=== PATIENT | female | born 1960 | race Caucasian/White ===

== ENCOUNTER 2018-01-09 08:40 | Observation (INO) | payer OTHER ==
[2018-01-09] MEDS: ASPIRIN 325 MG TABLET PO (09:00)
[2018-01-09] MEDS: IPRATRPIUM/ALBUTEROL 0.5/2.5MG 3 ML NEBU. NEB ×3 (09:17→19:45)
[2018-01-09 09:44] LABS: ADD MAN DIFF? NO
[2018-01-09 09:49] LABS: BASO % 1 % (0-3); EOS # 0.1 x10^3/uL (0.0-0.7); EOS % 2 % (0-3); HEMATOCRIT 42.4 % (36.0-47.0); HEMOGLOBIN 14.7 g/dL (12.0-15.5); LYMPH # 0.8 x10^3/uL (1.0-4.8); LYMPH % 17 % (24-48); MEAN CORPUSCULAR HEMOGLOBIN 31 pg (25-35); MEAN CORPUSCULAR HGB CONC 35 g/dL (31-37); MEAN CORPUSCULAR VOLUME 88 fL (79-100); MONO # 0.4 x10^3/uL (0.0-1.1); MONO % 7 % (0-9); NEUT # 3.5 x10^3uL (1.8-7.7); NEUT % 74 % (31-73); PLATELET COUNT 253 x10^3/uL (140-400); RED CELL DISTRIBUTION WIDTH 13.3 % (11.5-14.5); WHITE BLOOD COUNT 4.8 x10^3/uL (4.0-11.0)
[2018-01-09 09:58] LABS: ANION GAP 7 (6-14); BLOOD UREA NITROGEN 12 mg/dL (7-20); BUN/CREATININE RATIO 11 (6-20); CALCIUM 9.4 mg/dL (8.5-10.1); CARBON DIOXIDE 30 mmol/L (21-32); CHLORIDE 96 mmol/L (98-107); CREATININE 1.1 mg/dL (0.6-1.0); GFR 50.8; GLUCOSE 105 mg/dL (70-99); POTASSIUM 4.5 mmol/L (3.5-5.1); SODIUM 133 mmol/L (136-145)
[2018-01-09 10:01] LABS: PROTHROMBIN TIME PATIENT 12.4 SEC (11.7-14.0)
[2018-01-09] MEDS: IV NORMAL SALINE 1000ML BAG 1,000 ML IV (10:02)
[2018-01-09 10:03] LABS: ALBUMIN 4.1 g/dL (3.4-5.0); ALBUMIN/GLOBULIN RATIO 1.1 (1.0-1.7); ALK PHOS 65 U/L (46-116); ALT (SGPT) 25 U/L (14-59); AST (SGOT) 21 U/L (15-37); LIPASE 165 U/L (73-393); MAGNESIUM 2.2 mg/dL (1.8-2.4); TOTAL BILIRUBIN 0.3 mg/dL (0.2-1.0); TOTAL PROTEIN 7.7 g/dL (6.4-8.2)
[2018-01-09] MEDS: DICYCLOMINE 20 MG/2 ML AMPUL. IM (10:03)
[2018-01-09] MEDS: MORPHINE SULFATE 4 MG/ML DISP.SYRIN. IV/SQ (10:04)
[2018-01-09 10:08] LABS: TROPONINI < 0.017 ng/mL (0.000-0.055)
[2018-01-09 10:10] LABS: THYROID STIM HORMONE (TSH) 2.221 uIU/mL (0.358-3.74)
[2018-01-09 10:11] LABS: NT-PRO BNP 228 pg/mL (0-124)
[2018-01-09 10:11] LABS: CKMB MASS 0.9 ng/mL (0.0-3.6); CREATINE KINASE 57 U/L (26-192)
[2018-01-09 10:33] LABS: BILIRUBIN,URINE NEGATIVE (NEG); CLARITY,URINE CLEAR; COLOR,URINE OTHER; GLUCOSE,URINE NEGATIVE (NEG); NITRITE,URINE NEGATIVE (NEG); PH,URINE 7.5; PROTEIN,URINE NEGATIVE (NEG-TRACE); UROBILINOGEN,URINE 0.2 mg/dL (0.2 mg/dL)
[2018-01-09 10:35] LABS: D-DIMER < 0.27 ug/mlFEU (0.00-0.50)
[2018-01-09 10:39] LABS: BARBITURATES NEG (NEG); BENZODIAZEPINES NEG (NEG); CANNABINOIDS NEG (NEG); COCAINE NEG (NEG); METHADONE NEG (NEG); OPIATES NEG (NEG); PHENCYCLIDINE NEG (NEG)
[2018-01-09 10:41] LABS: AMPHETAMINE/METHAMPHETAMINE NEG (NEG); ETHANOL, URINE NEG (NEG)
[2018-01-09 11:01] LABS: BACTERIA,URINE FEW /HPF (0-FEW); RBC,URINE 0 /HPF (0-2); SQUAMOUS EPITHELIAL CELL,UR FEW /LPF; WBC,URINE 0 /HPF (0-4)
[2018-01-09] MEDS: IOHEXOL 300 MG/ML 100ML VIAL. IV (11:08)
[2018-01-09] MEDS: cloNIDine HCL 0.1 MG TABLET PO (11:51)
[2018-01-09] MEDS ORDERED: cloNIDine HCL 0.1 MG TABLET PO (13:30)
[2018-01-09] MEDS ORDERED: ONDANSETRON PF 4 MG/2 ML VIAL. IV (13:30)
[2018-01-09] MEDS ORDERED: NITROGLYCERIN SUBLINGUAL 0.4 MG BOTTLE OF 25. SL (13:30)
[2018-01-09] MEDS: LISINOPRIL 10 MG TABLET PO (15:31)
[2018-01-09] MEDS: ALPRAZolam 0.5 MG TABLET PO (15:45)
[2018-01-09] MEDS ORDERED: ALBUTEROL SULFATE 2.5 MG/3 ML NEBU. NEB (15:45)
[2018-01-09] MEDS: MORPHINE SULFATE 4 MG/ML DISP.SYRIN. IV ×2 (15:51→21:23)
[2018-01-09 16:07] LABS: CHOLESTEROL 244 mg/dL (0-200); HDLC 65 mg/dL (40-60); LDLC 159 mg/dL (0-100); NON-HDL CHOLESTEROL 179 mg/dL (0-129); TRIGLYCERIDES 101 mg/dL (0-150); VLDLC 20 mg/dL (0-40)
[2018-01-09 16:15] LABS: CHOLESTEROL/HDL RATIO 3.8
[2018-01-09] MEDS ORDERED: LABETALOL 20 MG/4 ML DISP.SYRIN. IVP (16:15)
[2018-01-09] MEDS: ASPIRIN ENTERIC COATED 81 MG TABLET.DR. PO (16:33)
[2018-01-09 16:38] LABS: TROPONINI < 0.017 ng/mL (0.000-0.055)
[2018-01-09] MEDS: CARVEDILOL 6.25 MG TABLET. PO (17:03)
[2018-01-09] MEDS ORDERED: METOPROLOL TART IMMED RELEASE 25 MG TABLET. PO (21:00)
[2018-01-09] MEDS: ATORVASTATIN CALCIUM 20 MG TABLET PO (21:18)
[2018-01-10 06:21] LABS: ADD MAN DIFF? NO
[2018-01-10 06:43] LABS: BASO % 1 % (0-3); EOS # 0.2 x10^3/uL (0.0-0.7); EOS % 4 % (0-3); HEMOGLOBIN 13.3 g/dL (12.0-15.5); LYMPH # 1.2 x10^3/uL (1.0-4.8); LYMPH % 27 % (24-48); MEAN CORPUSCULAR HEMOGLOBIN 30 pg (25-35); MEAN CORPUSCULAR HGB CONC 34 g/dL (31-37); MEAN CORPUSCULAR VOLUME 88 fL (79-100); MONO # 0.4 x10^3/uL (0.0-1.1); MONO % 10 % (0-9); NEUT # 2.6 x10^3uL (1.8-7.7); NEUT % 59 % (31-73); PLATELET COUNT 260 x10^3/uL (140-400); RED BLOOD COUNT 4.41 x10^6/uL (3.50-5.40); RED CELL DISTRIBUTION WIDTH 13.3 % (11.5-14.5); WHITE BLOOD COUNT 4.4 x10^3/uL (4.0-11.0)
[2018-01-10 06:48] LABS: ALBUMIN 3.4 g/dL (3.4-5.0); ALK PHOS 56 U/L (46-116); ALT (SGPT) 19 U/L (14-59); ANION GAP 5 (6-14); AST (SGOT) 15 U/L (15-37); BLOOD UREA NITROGEN 15 mg/dL (7-20); BUN/CREATININE RATIO 14 (6-20); CALCIUM 8.9 mg/dL (8.5-10.1); CARBON DIOXIDE 31 mmol/L (21-32); CHLORIDE 99 mmol/L (98-107); CREATININE 1.1 mg/dL (0.6-1.0); GFR 50.8; GLUCOSE 96 mg/dL (70-99); POTASSIUM 4.5 mmol/L (3.5-5.1); SODIUM 135 mmol/L (136-145); TOTAL BILIRUBIN 0.3 mg/dL (0.2-1.0); TOTAL PROTEIN 6.9 g/dL (6.4-8.2)
[2018-01-10] MEDS: IPRATRPIUM/ALBUTEROL 0.5/2.5MG 3 ML NEBU. NEB ×3 (07:47→15:59)
[2018-01-10] MEDS: ASPIRIN ENTERIC COATED 81 MG TABLET.DR. PO (08:18)
[2018-01-10] MEDS: CARVEDILOL 6.25 MG TABLET. PO (08:21)
[2018-01-10] MEDS: ACETAMINOPHEN 325 MG TABLET. PO (08:26)
[2018-01-10] MEDS ORDERED: LISINOPRIL 10 MG TABLET PO (09:00)
== END 2018-01-10 17:25 | disposition home or self-care (01) ==
LOC: ER 08:40 → 5 SOUTH 12:57
DX: I20.9 Angina pectoris, unspecified (principal); I12.9 Hypertensive chronic kidney disease with stage 1 through stage 4 chronic kidney disease, or unspecified chronic kidney disease; J44.9 Chronic obstructive pulmonary disease, unspecified; N18.2 Chronic kidney disease, stage 2 (mild); E78.5 Hyperlipidemia, unspecified; K21.9 Gastro-esophageal reflux disease without esophagitis; M19.90 Unspecified osteoarthritis, unspecified site; F17.210 Nicotine dependence, cigarettes, uncomplicated; R10.11 Right upper quadrant pain
CPT/HCPCS: 36415; 71045; 74177; 76770; 80053; 80061; 80307; 81001; 82553; 83690; 83735; 83880; 84443; 84484; 85025; 85379; 85610; 93005; 93306; 94640; 94760; 96361; 96372; 96374; 96376; 99285-25; 99406; G0378; G0379; J0500; J2270; J7030; J7620; Q9967

== ENCOUNTER 2018-02-03 06:47 | Emergency (ER) | payer OTHER ==
[2018-02-03 07:24] LABS: ADD MAN DIFF? NO
[2018-02-03 07:27] LABS: BASO % 1 % (0-3); EOS # 0.1 x10^3/uL (0.0-0.7); EOS % 2 % (0-3); HEMATOCRIT 43.1 % (36.0-47.0); HEMOGLOBIN 14.8 g/dL (12.0-15.5); LYMPH # 0.9 x10^3/uL (1.0-4.8); LYMPH % 16 % (24-48); MEAN CORPUSCULAR HEMOGLOBIN 30 pg (25-35); MEAN CORPUSCULAR HGB CONC 34 g/dL (31-37); MEAN CORPUSCULAR VOLUME 88 fL (79-100); MONO # 0.4 x10^3/uL (0.0-1.1); MONO % 7 % (0-9); NEUT % 74 % (31-73); PLATELET COUNT 250 x10^3/uL (140-400); RED BLOOD COUNT 4.88 x10^6/uL (3.50-5.40); WHITE BLOOD COUNT 5.4 x10^3/uL (4.0-11.0)
[2018-02-03] MEDS: IV NORMAL SALINE 1000ML BAG 1,000 ML IV (07:30)
[2018-02-03] MEDS: ONDANSETRON PF 4 MG/2 ML VIAL. IV (07:31)
[2018-02-03] MEDS: KETOROLAC 15 MG/ML VIAL. IV (07:33)
[2018-02-03] MEDS: MORPHINE SULFATE 4 MG/ML DISP.SYRIN. IV (07:34)
[2018-02-03 07:41] LABS: ANION GAP 8 (6-14); BLOOD UREA NITROGEN 11 mg/dL (7-20); BUN/CREATININE RATIO 9 (6-20); CALCIUM 9.5 mg/dL (8.5-10.1); CARBON DIOXIDE 29 mmol/L (21-32); CHLORIDE 92 mmol/L (98-107); CREATININE 1.2 mg/dL (0.6-1.0); GLUCOSE 107 mg/dL (70-99); POTASSIUM 4.2 mmol/L (3.5-5.1); SODIUM 129 mmol/L (136-145)
[2018-02-03 07:47] LABS: ALBUMIN 4.5 g/dL (3.4-5.0); ALBUMIN/GLOBULIN RATIO 1.2 (1.0-1.7); ALK PHOS 72 U/L (46-116); ALT (SGPT) 24 U/L (14-59); AST (SGOT) 19 U/L (15-37); LIPASE 185 U/L (73-393); TOTAL BILIRUBIN 0.4 mg/dL (0.2-1.0); TOTAL PROTEIN 8.2 g/dL (6.4-8.2)
[2018-02-03 07:51] LABS: TROPONINI < 0.017 ng/mL (0.000-0.055)
[2018-02-03 08:14] LABS: BILIRUBIN,URINE NEGATIVE (NEG); CLARITY,URINE CLEAR; COLOR,URINE YELLOW; GLUCOSE,URINE NEGATIVE (NEG); NITRITE,URINE NEGATIVE (NEG); PH,URINE 7.5; PROTEIN,URINE NEGATIVE (NEG-TRACE); UROBILINOGEN,URINE 0.2 mg/dL (0.2 mg/dL)
[2018-02-03 08:43] LABS: BACTERIA,URINE FEW /HPF (0-FEW); RBC,URINE 0 /HPF (0-2); SQUAMOUS EPITHELIAL CELL,UR MOD /LPF; WBC,URINE OCC /HPF (0-4)
== END 2018-02-03 10:26 | disposition home or self-care (01) ==
LOC: ER 06:47
DX: R10.11 Right upper quadrant pain (principal); F41.9 Anxiety disorder, unspecified; R14.0 Abdominal distension (gaseous); R20.2 Paresthesia of skin; J45.909 Unspecified asthma, uncomplicated; J44.9 Chronic obstructive pulmonary disease, unspecified; I10 Essential (primary) hypertension; F17.210 Nicotine dependence, cigarettes, uncomplicated; Z98.51 Tubal ligation status
CPT/HCPCS: 36415; 71045; 72072; 76705; 80053; 81001; 83690; 84484; 85025; 93005; 96374; 96375; 99285-25; J1885; J2270; J2405; J7030